=== PATIENT | male | born 1980 | race Caucasian/White ===

== ENCOUNTER 2021-04-30 09:51 | Inpatient (IN) | payer OTHER, SELFPAY ==
[2021-04-30] VITALS (8 sets, daily range): BP systolic 150–189; BP diastolic 70–110; PULSE 61–73; RESP 15–18; TEMP 36.6–37.3; O2SAT 95–98; BMI 33.6; BMI 34.9
--- NOTE | ~2021-04-30 | CT_ITS ---
EXAMINATION: CT ABDOMEN AND PELVIS WITH CONTRAST CLINICAL INFORMATION: Mid to left abdominal pain COMPARISON: None TECHNIQUE: Multidetector volumetric images were obtained from the superior aspect of the liver through the pubic symphysis following administration 85 mL of Omnipaque 350 intravenous contrast. Sagittal and coronal reformatted images were obtained on the technologist's workstation. Oral contrast: No This CT examination was performed using dose optimization techniques as appropriate, variously including the following: *Automated exposure control *Adjustment of mA and/or kV according to patient size (this includes techniques or standardized protocols for targeted exams where dose is matched to indication/reason for exam; i.e. extremities or head) *Use of iterative reconstruction technique DLP: 1050 mGy-cm FINDINGS: LUNG BASES: The visualized lung bases are unremarkable. No pleural or pericardial effusion. LIVER, GALLBLADDER, AND BILIARY TREE: The liver is normal in size, shape, and attenuation. No focal hepatic lesion or biliary ductal dilatation is present. There is a solitary calcified granuloma within the left lobe. The gallbladder is unremarkable with no evidence of radiopaque gallstones, gallbladder wall thickening, or obvious pericholecystic inflammatory changes. PANCREAS: There is some haziness seen within the peripancreatic fat about the head of the pancreas. No abnormal fluid collection is seen. No pancreatic duct dilatation is seen. No abnormal calcification about the distal common bile duct or pancreatic head identified. No abnormal fluid collection. SPLEEN: Unremarkable. ADRENAL GLANDS: Unremarkable. KIDNEYS AND URETERS: The kidneys are normal in size, shape, and attenuation. There is a 2 mm nonobstructing calculus seen within the upper pole of the left upper collecting system. No hydronephrosis or hydroureter. No perinephric stranding. There is a 7 mm low-density region seen within the cortex interpolar region of the left kidney likely representing a cyst. BLADDER: Unremarkable. GASTROINTESTINAL TRACT: No dilated loops of large or small bowel are seen. No free air or free fluid. No pericolonic inflammatory change. No evidence of acute appendicitis. ABDOMINAL WALL: No significant hernia is appreciated. LYMPH NODES: There are numerous nonenlarged mesenteric lymph nodes seen. VASCULAR: Unremarkable. PELVIC VISCERA: Prostate calcific dictation is present. OSSEOUS STRUCTURES: No suspicious destructive bony lesions identified. There is a sclerotic lesion seen within the right femoral neck consistent with bone island. There is degenerative disc disease seen at the L5-S1 level. CT/CT abdomen pelvis w con IMPRESSION: Mild hazy density within the peripancreatic fat around the head of the pancreas without abnormal fluid collection. This may represent early or mild acute pancreatitis
--- NOTE | 2021-04-30 10:03 | ED.ABDPAIN ---
HPI - Abdominal Pain General Chief Complaint: Abdominal Pain Stated Complaint: ABP PAIN Time Seen by Provider: 04/30/21 09:59 Source: patient Mode of arrival: ambulatory Limitations: no limitations Related Data Allergies Allergy/AdvReac Type Severity Reaction Status Date / Time No Known Allergies Allergy Unverified 05/14/20 17:02 [No Known Allergies*] Physical Exam Vital Signs: Vital Signs: Last Vital Signs Temp 97.9 F 04/30/21 09:55 Pulse 73 04/30/21 09:55 Resp 18 04/30/21 09:55 BP 189/110 H 04/30/21 09:55 Pulse Ox 97 04/30/21 09:55 Body Mass Index 33.6 [facility] Past Medical History Attestation statement: The following information was validated with the patient. Medical History Pancreatitis
--- NOTE | 2021-04-30 10:22 | ED_ITS ---
HPI - Abdominal Pain General Chief Complaint: Abdominal Pain Stated Complaint: ABP PAIN Time Seen by Provider: 04/30/21 09:59 Source: patient Mode of arrival: ambulatory History of Present Illness HPI narrative: 41-year-old male without significant past medical history other than 3 prior episodes of pancreatitis, that he states he has been told are secondary to his alcohol intake but patient states he ?does not drink that much?. Patient states he drinks intermittently but not daily. Otherwise, patient states that pain started yesterday with radiation into the back has been associated with some nausea but otherwise denies any fever, chills, vomiting, diarrhea, dysuria, and describes that he has had 1 episode of renal colic in the past but this does not feel the same. Related Data Home Medications Medication Instructions Recorded Confirmed fluticasone propionate 50 1 spray INTRANASAL BID 04/30/21 mcg/actuation nasal spray,suspension lisinopril 10 mg tablet 1 tab PO DAILY 04/30/21 Allergies Allergy/AdvReac Type Severity Reaction Status Date / Time No Known Allergies Allergy Unverified 05/14/20 17:02 [No Known Allergies*] Review of Systems Review of Systems Pertinent positives and negatives as stated in HPI 10 point review of systems is otherwise negative. Physical Exam Vital Signs: Vital Signs: Last Vital Signs Temp 97.9 F 04/30/21 09:55 Pulse 62 04/30/21 10:49 Resp 18 04/30/21 10:49 BP 174/103 H 04/30/21 10:49 Pulse Ox 98 04/30/21 10:49 Body Mass Index 33.6 VITAL SIGNS: Reviewed. GENERAL: Well developed, well nourished, in no acute distress. HEAD: Normocephalic/atraumatic, EYES: PERRLA, EOMI OROPHARYNX: no oral lesions noted, posterior pharynx clear LUNGS: Normal breath sounds. No adventitious sounds or accessory muscle use. SpO2<97> CARDIOVASCULAR: Regular rate and rhythm without noted murmurs ABDOMEN: Obese, body habitus limits exam, Soft, diffuse, pressure-like tenderness on palpation across upper abdomen without rebound, non-distended with bowel sounds. SKIN: Inspection of the skin reveals no rashes NEUROLOGIC: Alert and oriented x 4. Course Course Course Narrative: 41-year-old male with history and clinical presentation most suggestive of pancreatitis and less indicative of diverticulitis/renal colic. Review of all investigations consistent with acute pancreatitis, despite multiple doses of pain medication he continues to have pain and is unable to tolerate oral intake. Patient informed of all results and findings and will be admitted for pain control and inability to tolerate oral intake. I reviewed the case with the inpatient hospitalist who accepts admission. MDM - Abdominal Pain Lab Data Result diagrams: 04/30/21 10:38 04/30/21 10:38 Labs: Lab Results 04/30/21 04/30/21 04/30/21 Range/Units 10:37 10:38 10:38 WBC 11.9 H (4.8-10.8) X10*3/uL RBC 5.34 (4.60-5.80) X10*6/uL Hgb 15.5 (14.0-18.0) g/dl Hct 44.7 (42-52) % MCV 83.7 (80-98) fL MCH 29.0 (27.0-33.0) pg MCHC 34.7 (31.0-36.0) g/dl RDW 12.4 (11.0-16.0) % Plt Count 250 (160-400) X10*3/uL MPV 9.6 (9.4-12.4) fL Immature Gran % (Auto) 0.3 (0.0-0.4) % Neut % (Auto) 66.9 (45-73) % Lymph % (Auto) 22.5 (20-40) % [place] % (Auto) 8.3 (2-11) % Eos % (Auto) 1.5 (0-4) % Baso % (Auto) 0.5 (0-2) % Lymph # (Auto) 2.7 (1.2-4.9) X10*3/uL [place] # (Auto) 1.0 (0.1-1.2) X10*3/uL Eos # (Auto) 0.2 (0.0-0.4) X10*3/uL Baso # (Auto) 0.1 (0.0-0.2) X10*3/uL Abs Immat Gran (auto) 0.03 (0.00-0.03) X10*3/uL Absolute Neuts (auto) 7.9 (2.0-8.3) X10*3/uL Absolute Nucleated RBC 0.000 (0.0-0.012) X10*3/uL Nucleated RBC % (auto) 0.0 (0.0-0.2) /100WBC Sodium 137 (135-145) mmol/L Potassium 3.7 (3.3-5.1) mmol/L Chloride 104 (96-108) mmol/L Carbon Dioxide 25 (22-29) mmol/L Anion Gap 12 (12-20) BUN 11 (9-16) mg/dL Creatinine 0.73 (0.5-1.4) mg/dL Estim Creat Clear Calc 175.6 Estimated GFR > 60 Random Glucose 92 (60-115) mg/dL Calcium 9.0 (8.4-10.2) mg/dL Total Bilirubin 1.0 (0.0-1.0) mg/dL AST 23 (5-37) U/L ALT 45 H (0-40) U/L Alkaline Phosphatase 69 (39-117) U/L Total Protein 7.1 (6.5-8.0) g/dL Albumin 4.1 (3.5-5.0) g/dL Triglycerides 123 mg/dL Cholesterol 209 mg/dL LDL Cholesterol, Calc 140 mg/dl HDL Cholesterol 45 mg/dL Lipase 222 H (8-78) U/L Urine Color Urine Appearance Urine pH (5.0-8.0) Ur Specific [place] (1.005-1.025) Urine Protein (NEG-TRACE) MG/DL Urine Glucose (UA) (NEG) MG/DL Urine Ketones (NEG) MG/DL Urine Blood (NEG) Urine Nitrite (NEG) Ur Leukocyte Esterase (NEG) Urine RBC (0) /HPF Urine WBC (0-4) /HPF Ur Squamous Epith Cells /LPF Amorphous Sediment /LPF Urine Bacteria /LPF Urine Mucus /LPF 04/30/21 Range/Units 10:38 WBC (4.8-10.8) X10*3/uL RBC (4.60-5.80) X10*6/uL Hgb (14.0-18.0) g/dl Hct (42-52) % MCV (80-98) fL MCH (27.0-33.0) pg MCHC (31.0-36.0) g/dl RDW (11.0-16.0) % Plt Count (160-400) X10*3/uL MPV (9.4-12.4) fL Immature Gran % (Auto) (0.0-0.4) % Neut % (Auto) (45-73) % Lymph % (Auto) (20-40) % [place] % (Auto) (2-11) % Eos % (Auto) (0-4) % Baso % (Auto) (0-2) % Lymph # (Auto) (1.2-4.9) X10*3/uL [place] # (Auto) (0.1-1.2) X10*3/uL Eos # (Auto) (0.0-0.4) X10*3/uL Baso # (Auto) (0.0-0.2) X10*3/uL Abs Immat Gran (auto) (0.00-0.03) X10*3/uL Absolute Neuts (auto) (2.0-8.3) X10*3/uL Absolute Nucleated RBC (0.0-0.012) X10*3/uL Nucleated RBC % (auto) (0.0-0.2) /100WBC Sodium (135-145) mmol/L Potassium (3.3-5.1) mmol/L Chloride (96-108) mmol/L Carbon Dioxide (22-29) mmol/L Anion Gap (12-20) BUN (9-16) mg/dL Creatinine (0.5-1.4) mg/dL Estim Creat Clear Calc Estimated GFR Random Glucose (60-115) mg/dL Calcium (8.4-10.2) mg/dL Total Bilirubin (0.0-1.0) mg/dL AST (5-37) U/L ALT (0-40) U/L Alkaline Phosphatase (39-117) U/L Total Protein (6.5-8.0) g/dL Albumin (3.5-5.0) g/dL Triglycerides mg/dL Cholesterol mg/dL LDL Cholesterol, Calc mg/dl HDL Cholesterol mg/dL Lipase (8-78) U/L Urine Color YELLOW Urine Appearance CLOUDY Urine pH 7.0 (5.0-8.0) Ur Specific [place] 1.010 (1.005-1.025) Urine Protein 1+ H (NEG-TRACE) MG/DL Urine Glucose (UA) NEG (NEG) MG/DL Urine Ketones NEG (NEG) MG/DL Urine Blood NEG (NEG) Urine Nitrite NEG (NEG) Ur Leukocyte Esterase NEG (NEG) Urine RBC 0 (0) /HPF Urine WBC 0-2 (0-4) /HPF Ur Squamous Epith Cells NONE /LPF Amorphous Sediment 2+ /LPF Urine Bacteria TRACE /LPF Urine Mucus 1+ /LPF Discharge Plan Discharge Clinical Impression: Acute pancreatitis Patient Disposition: Admitted As Inpatient [facility] Past Medical History Source: nursing notes reviewed Medical History Pancreatitis Social History Social History Alcohol intake: current Alcohol intake frequency: a few times a week Patient Tobacco Use Status: Current everyday Tobacco user Use of substances other than those prescribed or required for medical reasons: Yes Substance Use Type: Marijuana Advance Directives: No Advance Directives Information Provided: No
[2021-04-30] MEDS: 0.9 % Sodium Chloride 1,000 ML 999 ML IV ×2 (10:40→11:45)
[2021-04-30 10:45] LABS: MANUAL DIFF FLAG NO
[2021-04-30 10:48] LABS: Basophils Absolute Auto 0.1 X10*3/uL (0.0-0.2); Basophils Percent Auto 0.5 % (0-2); Eosinophils Absolute Auto 0.2 X10*3/uL (0.0-0.4); Eosinophils Percent Auto 1.5 % (0-4); Glucose Urine UA NEG (NEG); Hematocrit 44.7 % (42-52); Hemoglobin 15.5 g/dl (14.0-18.0); Imm Gran Abs Auto 0.03 X10*3/uL (0.00-0.03); Imm Gran Pct Auto 0.3 % (0.0-0.4); Leukocyte Esterase Urine NEG (NEG); Lymphocytes Absolute Auto 2.7 X10*3/uL (1.2-4.9); Lymphocytes Percent Auto 22.5 % (20-40); Mean Corpuscular HGB Conc 34.7 g/dl (31.0-36.0); Mean Corpuscular Volume 83.7 fL (80-98); Mean Platelet Volume 9.6 fL (9.4-12.4); Monocytes Percent Auto 8.3 % (2-11); Neutrophils Absolute Auto 7.9 X10*3/uL (2.0-8.3); Neutrophils Percent Auto 66.9 % (45-73); Nitrite Urine NEG (NEG); Platelet Count 250 X10*3/uL (160-400); Red Blood Count 5.34 X10*6/uL (4.60-5.80); Red Cell Distribution Width 12.4 % (11.0-16.0); UACC Culture Trigger NO; Urine Blood NEG (NEG); Urine Ketones NEG (NEG); Urine Protein 1+ MG/DL (NEG-TRACE); White Blood Count 11.9 X10*3/uL (4.8-10.8)
[2021-04-30 10:49] LABS: Appearance Urine CLOUDY; Color Urine YELLOW
[2021-04-30 10:56] LABS: Bacteria Urine TRACE /LPF; Mucus Urine 1+ /LPF; RBC Urine 0 /HPF (0); WBC Urine 0-2 /HPF (0-4)
[2021-04-30 10:57] LABS: Amorphous Sediment Urine 2+ /LPF
[2021-04-30] MEDS: hydroCHLOROthiazide 12.5 MG TABLET PO (11:01)
[2021-04-30] MEDS: Ketorolac Tromethamine 15 MG/ML VIAL IVPUSH (11:01)
[2021-04-30 11:02] LABS: Cholesterol 209 mg/dL; HDL Cholesterol 45 mg/dL; LDL Cholesterol Calculated 140 mg/dl; Triglycerides 123 mg/dL
[2021-04-30 11:21] LABS: Alanine Aminotransferase 45 U/L (0-40); Albumin Level 4.1 g/dL (3.5-5.0); Alkaline Phosphatase 69 U/L (39-117); Anion Gap 12 (12-20); Aspartate Amino Transferase 23 U/L (5-37); Blood Urea Nitrogen 11 mg/dL (9-16); Carbon Dioxide 25 mmol/L (22-29); Chloride 104 mmol/L (96-108); Creatinine Clr Calc Pharmacy 175.6; Estimated Glomerular Filt Rate > 60; Glucose Random 92 mg/dL (60-115); Lipase 222 U/L (8-78); Potassium 3.7 mmol/L (3.3-5.1); Sodium 137 mmol/L (135-145); Total Protein 7.1 g/dL (6.5-8.0)
[2021-04-30] MEDS: fentaNYL citrate/PF 100 MCG/2 ML VIAL 25 MCG IVPUSH (11:46)
[2021-04-30] MEDS: ondansetron HCL 4 MG/2 ML VIAL IVPUSH (11:46)
[2021-04-30] MEDS: HYDROmorphone HCl 0.5 MG/0.5 ML SYRINGE 0.25 MG IVPUSH (12:20)
[2021-04-30] MEDS: iohexoL 350 MG/ML 100 ML INFUS..BTL IV (12:22)
--- NOTE | 2021-04-30 13:32 | PM.IMHP ---
History of Present Illness Date of Service: 04/30/21 Chief Complaint: Epigastric pain 41-year-old male presented with epigastric pain. Patient has several episodes of pancreatitis in the past, mostly recently about 1 year prior to presentation. Patient states that 1 day prior to presentation he started to have epigastric sharp pain radiating to back that was worse with eating to point where he was unable to eat at all. Similar to previous episodes. Denies any fevers, chills, chest pain, shortness of breath. Patient's last drink of alcohol was 2 days before symptoms when he had 2 glasses of beer. Patient drinks several times a week, several beers, does not feel that this is the etiology. Of note he did recently started a keto powder drink, and has been on lisinopril. Triglycerides were normal, CT abdomen did not show any gallstones. Previous episodes were deemed to be secondary to alcohol although this diagnosis was never made with confidence. Review of Systems Review of Systems: Constitutional: Denies fever, denies Chills Eyes: denies blurry vision ENT: denies sore throat CVS: denies chest pain Respiratory: Denies dyspnea GI: abdominal pain : denies dysuria MSK: denies neck pain Skin: denies rash Neuro: denies specific motor weakness Psych: denies suicidal ideation Endocrine: denies heat/cold intolerance Hematologic: denies easy bleeding Allergy: denies hives [facility] Medical History Pancreatitis Social History Alcohol intake: current Alcohol intake frequency: a few times a week Patient Tobacco Use Status: Current everyday Tobacco user Use of substances other than those prescribed or required for medical reasons: Yes Substance Use Type: Marijuana Advance Directives: No Advance Directives Information Provided: No Meds Allergies Allergy/AdvReac Type Severity Reaction Status Date / Time No Known Allergies Allergy Unverified 05/14/20 17:02 [No Known Allergies*] Active Medications: Current Medications Generic Name Dose Route Start Last Admin Trade Name Freq PRN Reason Stop Dose Admin Pharmacy Consult 1 each 04/30/21 13:09 Consult Rx Perform Med Rec MISCELLANE ONCE PRN Consult order Home Medications Medication Instructions Recorded Confirmed Last Taken Type fluticasone propionate 50 1 spray INTRANASAL BID 04/30/21 Unknown History mcg/actuation nasal spray,suspension lisinopril 10 mg tablet 1 tab PO DAILY 04/30/21 Unknown History Physical Exam Vital Signs and Narrative: Vital Signs: Last Vital Signs Temp 97.9 F 04/30/21 09:55 Pulse 62 04/30/21 10:49 Resp 18 04/30/21 10:49 BP 174/103 H 04/30/21 10:49 Pulse Ox 98 04/30/21 10:49 Body Mass Index 33.6 General: in pain HEENT: atraumatic Neck: normal to visual inspection CVS: S1, S2, RRR Resp: CTA bilateral Chest: non tender GI: soft, epigastrum tender, non distended : no CVA tenderness Skin: no rashes Extremities: no edema Neuro: Oriented X3, grossly intact Psych: cooperative Results Labs CBC and Chem 7: 04/30/21 10:38 04/30/21 10:38 Labs: Laboratory Results - last 24 hr 04/30/21 04/30/21 04/30/21 10:37 10:38 10:38 MCV 83.7 MCH 29.0 MCHC 34.7 RDW 12.4 Plt Count 250 MPV 9.6 Immature Gran % (Auto) 0.3 Neut % (Auto) 66.9 Lymph % (Auto) 22.5 [place] % (Auto) 8.3 Eos % (Auto) 1.5 Baso % (Auto) 0.5 Lymph # (Auto) 2.7 [place] # (Auto) 1.0 Eos # (Auto) 0.2 Baso # (Auto) 0.1 Abs Immat Gran (auto) 0.03 Absolute Neuts (auto) 7.9 Absolute Nucleated RBC 0.000 Nucleated RBC % (auto) 0.0 Anion Gap 12 Estim Creat Clear Calc 175.6 Estimated GFR > 60 Random Glucose 92 Calcium 9.0 Total Bilirubin 1.0 AST 23 ALT 45 H Alkaline Phosphatase 69 Total Protein 7.1 Albumin 4.1 Triglycerides 123 Cholesterol 209 LDL Cholesterol, Calc 140 HDL Cholesterol 45 Lipase 222 H Urine Color Urine Appearance Urine pH Ur Specific [place] Urine Protein Urine Glucose (UA) Urine Ketones Urine Blood Urine Nitrite Ur Leukocyte Esterase Urine RBC Urine WBC Ur Squamous Epith Cells Amorphous Sediment Urine Bacteria Urine Mucus 04/30/21 10:38 MCV MCH MCHC RDW Plt Count MPV Immature Gran % (Auto) Neut % (Auto) Lymph % (Auto) [place] % (Auto) Eos % (Auto) Baso % (Auto) Lymph # (Auto) [place] # (Auto) Eos # (Auto) Baso # (Auto) Abs Immat Gran (auto) Absolute Neuts (auto) Absolute Nucleated RBC Nucleated RBC % (auto) Anion Gap Estim Creat Clear Calc Estimated GFR Random Glucose Calcium Total Bilirubin AST ALT Alkaline Phosphatase Total Protein Albumin Triglycerides Cholesterol LDL Cholesterol, Calc HDL Cholesterol Lipase Urine Color YELLOW Urine Appearance CLOUDY Urine pH 7.0 Ur Specific [place] 1.010 Urine Protein 1+ H Urine Glucose (UA) NEG Urine Ketones NEG Urine Blood NEG Urine Nitrite NEG Ur Leukocyte Esterase NEG Urine RBC 0 Urine WBC 0-2 Ur Squamous Epith Cells NONE Amorphous Sediment 2+ Urine Bacteria TRACE Urine Mucus 1+ Imaging Radiologist's Impressions: Impressions Abdomen/Pelvis CT 04/30/21 10:21 IMPRESSION: Mild hazy density within the peripancreatic fat around the head of the pancreas without abnormal fluid collection. This may represent early or mild acute pancreatitis Assessment and Plan (1) Acute pancreatitis: Status: Acute 41M presented with severe epigastic abdominal pain and inability to tolerate po. acute pancreatitis NPO IVF IV dilaudid etiology differential: alcohol most likely, though patient reports only moderate alcohol and ALT>AST will check IgG4 would stop keto powder and lisinopril for now Quality Stroke Does the patient have a stroke diagnosis?: No VTE Prior VTE?: No VTE Risk Level:: Medical - moderate - high VTE Device Contraindication: Treatment Not Indicated VTE Drug Contraindication: N/A - Med Ordered
[2021-04-30] MEDS: HYDROmorphone HCl 0.5 MG/0.5 ML SYRINGE IVPUSH ×2 (13:54→15:28)
[2021-04-30] MEDS: Lactated Ringers 1,000 ML 200 ML IVCONT ×2 (13:54→19:22)
--- NOTE | 2021-04-30 14:10 | PHA.MEDREC ---
Pharmacy Consult ? Medication Reconciliation Pharmacy has completed the medication reconciliation. Per patient, prescribed lisinopril last week (04/22) and patient will start once they return from vacation next week.
[2021-04-30 14:12] LABS: COVID-19 Test Negative (Negative); IDNOW Serial# 9DD0AD1C
[2021-04-30] MEDS: HYDROmorphone HCl 0.5 MG/0.5 ML SYRINGE 1.5 MG IVPUSH ×2 (19:28→22:18)
[2021-04-30] MEDS: Metoclopramide HCl 10 MG/2 ML VIAL 5 MG IVPUSH (23:30)
[2021-05-01] VITALS (8 sets, daily range): BP systolic 148–173; BP diastolic 68–86; PULSE 59–70; RESP 15–18; TEMP 36.9–37.1; O2SAT 95–96
[2021-05-01] MEDS: Lactated Ringers 1,000 ML 200 ML IVCONT ×5 (00:26→20:55)
[2021-05-01] MEDS: HYDROmorphone HCl 0.5 MG/0.5 ML SYRINGE 1.5 MG IVPUSH ×8 (01:10→23:07)
[2021-05-01 06:57] LABS: Hemoglobin 13.9 g/dl (14.0-18.0); Mean Corpuscular HGB Conc 33.9 g/dl (31.0-36.0); Mean Corpuscular Hemoglobin 28.9 pg (27.0-33.0); Mean Corpuscular Volume 85.2 fL (80-98); Mean Platelet Volume 10.4 fL (9.4-12.4); Platelet Count 229 X10*3/uL (160-400); Red Blood Count 4.81 X10*6/uL (4.60-5.80); Red Cell Distribution Width 12.4 % (11.0-16.0); White Blood Count 13.9 X10*3/uL (4.8-10.8)
[2021-05-01 07:15] LABS: Anion Gap 12 (12-20); Blood Urea Nitrogen 9 mg/dL (9-16); Calcium 8.5 mg/dL (8.4-10.2); Carbon Dioxide 26 mmol/L (22-29); Chloride 100 mmol/L (96-108); Creatinine Clr Calc Pharmacy 165.3; Estimated Glomerular Filt Rate > 60; Glucose Fasting 84 mg/dL (60-99); Magnesium 1.9 mg/dL (1.6-2.6); Potassium 3.2 mmol/L (3.3-5.1); Sodium 135 mmol/L (135-145)
[2021-05-01] MEDS: Rivaroxaban 10 MG TABLET PO (07:41)
--- NOTE | 2021-05-01 09:02 | MHC.CM.PN ---
CM met with Patient at bedside. Patient lives in a house with his Girlfriend and his goal is to return home/no services. CM has initiated and will follow for dc planning. Patient's Mother is his HCP and PCP is Dr. Manpreet Elias.
--- NOTE | 2021-05-01 11:28 | HO.PM.IMPN ---
Subjective Subjective Date of Service: 05/01/21 Interval History: a little better, still no appetite Cardiovascular Cardiovascular: Reports no additional cardiovascular complaints Respiratory Respiratory: Reports no additional respiratory complaints Physical Exam Vital Signs: Vital Signs: Last Vital Signs Temp 98.6 F 05/01/21 07:34 Pulse 67 05/01/21 07:34 Resp 18 05/01/21 07:34 BP 173/78 H 05/01/21 07:34 Pulse Ox 96 05/01/21 07:34 Body Mass Index 34.9 General: AO X 3, still in pain, though less than yesterday Resp: CTA bilateral CVS: S1,S2,RRR GI: soft, epigastic tenderness, non distended Neuro: motor grossly intact Psych: appropriate affect Objective Data Active Medications Hydromorphone HCl (Hydromorphone Hcl 0.5 Mg/0.5 Ml Syringe) 1.5 mg IVPUSH Q3H PRN; Protocol PRN Reason: pain Last Admin: 05/01/21 11:00 Dose: 1.5 mg Documented by: NATALYA Lactated Ringer's (Lr) 1,000 mls @ 200 mls/hr IVCONT .Q5H [facility] Last Admin: 05/01/21 10:59 Dose: 200 mls/hr Documented by: NATALYA Pharmacy Consult (Consult Rx Perform Med Rec) 1 each MISCELLANE ONCE PRN PRN Reason: Consult order Rivaroxaban (Rivaroxaban 10 Mg Tablet) 10 mg PO DAILY [facility] Last Admin: 05/01/21 07:41 Dose: 10 mg Documented by: JOSIAS Labs CBC & Chem 7: 05/01/21 05:21 05/01/21 05:21 Labs: Laboratory Results - last 24 hr 04/30/21 05/01/21 05/01/21 13:24 05:21 05:21 MCV 85.2 MCH 28.9 MCHC 33.9 RDW 12.4 Plt Count 229 MPV 10.4 Absolute Nucleated RBC 0.000 Nucleated RBC % (auto) 0.0 Anion Gap 12 Estim Creat Clear Calc 165.3 Estimated GFR > 60 Fasting Glucose 84 Calcium 8.5 Magnesium 1.9 COVID-19 (DEENA) Negative COVID-19 Clin Com See Note Assessment and Plan (1) Acute pancreatitis: Status: Acute Assessment and Plan: 41M presented with severe epigastic abdominal pain and inability to tolerate po. acute pancreatitis still not ready to eat, keep NPO, advance to clears when patient is ready IVF IV Dilaudid etiology differential: alcohol most likely, though patient reports only moderate alcohol and ALT>AST follow up IgG4 apparently patient had not started lisinopril yet, so not the cause. htn will start lisinopril Quality Stroke Does the patient have a stroke diagnosis?: No VTE Prior VTE?: No VTE Risk Level:: Medical - moderate - high VTE Device Contraindication: Treatment Not Indicated VTE Drug Contraindication: N/A - Med Ordered
[2021-05-01] MEDS: Potassium Chloride ER 20 MEQ TAB.ER.PRT 40 MEQ PO (13:20)
--- NOTE | 2021-05-01 23:55 | PM.EVENT ---
Event Note Date of Service: 05/01/21 Event Note: Discharge Against medical advise note: Patient mentioned that he had a flight to catch; he try to postpone it but he could not; explained to the patient about the risks involved which can even lead to worsening current condition and major complications patient verbalized that he understood the risks and still wants to leave AMA.
--- NOTE | 2021-05-02 00:01 | PC.NURSE ---
At 1145 pt stated I have a flight and [place] at the airport at 0300, I have to leave the hospital. Pt alert and oriented. Nursing sample supervisor aware, Dr Matthew spoke to pt via telephone. Pt left AMA, form signed by pt and witnessed by this RN and nursing sample supervisor. IV removed.
--- NOTE | 2021-05-02 06:50 | PM.DS ---
DS: Providers Provider Date of Service: 05/01/21 Date of admission: 04/30/21 13:31 Primary care physician: Manpreet Elias MD DS: Diagnosis Discharge Diagnosis (1) Acute pancreatitis: Status: Acute DS: Summary Hospital Course Hospital Course: Patient was admitted for acute pancreatitis. Most likely etiology is alcoholic pancreatitis although diagnosis is not certain. IgG4 still pending. Patient was treated with IV pain medications and IV hydration. Patient was still in significant pain and only tolerating clears. However, he decided to leave against medical advice. Patient demonstrated understanding of his medical condition and risks of leaving against medical advice including possible Time Spent with Patient Time attestation: Total time spent providing and/or coordinating discharge services: Discharge coordination time: Greater than 30 minutes Quality: Stroke Does the patient have a stroke diagnosis?: No Physical Exam Vital Signs: Vital Signs: Last Vital Signs Temp 98.4 F 05/01/21 23:41 Pulse 70 05/01/21 23:41 Resp 18 05/01/21 23:41 BP 171/68 H 05/01/21 23:41 Pulse Ox 95 05/01/21 23:41 Body Mass Index 34.9 General: AO X 3, still in pain, though less than yesterday Resp:? CTA bilateral CVS: S1,S2,RRR GI: soft, epigastic tenderness, non distended Neuro:? motor grossly intact Psych: appropriate affect DS: Data Data Completed and Pending Labs on day of discharge: Laboratory Results - last 24 hr 05/01/21 05/01/21 05:21 05:21 WBC 13.9 H RBC 4.81 Hgb 13.9 L Hct 41.0 L MCV 85.2 MCH 28.9 MCHC 33.9 RDW 12.4 Plt Count 229 MPV 10.4 Absolute Nucleated RBC 0.000 Nucleated RBC % (auto) 0.0 Sodium 135 Potassium 3.2 L Chloride 100 Carbon Dioxide 26 Anion Gap 12 BUN 9 Creatinine 0.79 Estim Creat Clear Calc 165.3 Estimated GFR > 60 Fasting Glucose 84 Calcium 8.5 Magnesium 1.9 Discharge Plan Discharge Patient Disposition: Left Against Medical Advice Discharge Diagnosis: acute pancreatitis Referrals: Manpreet Elias MD [Primary Care Provider] - 1 Week Discharge Medications: No Action lisinopril 10 mg tablet 1 tab PO DAILY RF: 0 Discharge Orders: Discharge Order (Routine); Ordered 05/02/21 Ordered By: Mason Mcclain Care Plan Goals: recovery Health Concerns: pacnreatitis Plan of Treatment: advance diet as tolerated, no alcohol, follow up pending labs Assessment: see above Discharge Date/Time: 05/02/21 00:00
--- NOTE | 2021-05-02 08:29 | MHC.CM.PN ---
PT LEFT AGAINST MEDICAL ADVICE
[2021-05-04 20:51] LABS: Immunoglobulin G Subclass 1 630 mg/dL (382-929); Immunoglobulin G Subclass 2 152 mg/dL (241-700); Immunoglobulin G Subclass 3 43 mg/dL (22-178); Immunoglobulin G Total 983 mg/dL (600-1640)
== END 2021-05-02 | disposition left against medical advice (07) | DRG 282 ==
LOC: HO.ED 13:06 → HO.EDOVER 13:49 → HO.IMC 17:32
PROVIDERS: Admitting Provider Internal Medicine; Emergency Provider Student in an Organized Health Care Education/Training Program; PCP Pediatrics; Visit Provider Internal Medicine
DX: K85.20 Alcohol induced acute pancreatitis without necrosis or infection (principal); F17.210 Nicotine dependence, cigarettes, uncomplicated; Z20.822 Contact with and (suspected) exposure to COVID-19; Z71.6 Tobacco abuse counseling; Z79.899 Other long term (current) drug therapy
CPT/HCPCS: 36415; 74177; 80048; 80053; 80061; 81001; 82784; 83690; 83735; 85025; 85027; 87635; 96361; 96374; 96375; 99285; J1170; J1885; J2405; J2765; J3010; Q9967

== ENCOUNTER 2024-01-12 19:10 | Emergency (ER) | payer OTHER, SELFPAY ==
[2024-01-12] VITALS (9 sets, daily range): BP systolic 147–182; BP diastolic 89–116; PULSE 56–71; RESP 14–18; TEMP 36.7; O2SAT 96–99; BMI 36.8
--- NOTE | ~2024-01-12 | CT_ITS ---
EXAMINATION: CT OF THE HEAD WITHOUT CONTRAST CLINICAL INFORMATION: Accelerated hypertension with headache.. COMPARISON: None. TECHNIQUE: Contiguous axial imaging was performed from the skullbase to vertex without intravenous administration of contrast. This CT examination was performed using dose optimization techniques as appropriate, variously including the following: *Automated exposure control *Adjustment of mA and/or kV according to patient size (this includes techniques or standardized protocols for targeted exams where dose is matched to indication/reason for exam; i.e. extremities or head) *Use of iterative reconstruction technique DLP: 680 mGy-cm. FINDINGS: There is no evidence of acute intracranial hemorrhage or territorial infarction. No abnormal mass-effect or midline shift is seen. [place] to white matter differentiation is well preserved. No extra-axial fluid collections are identified. The ventricles are normal in size. There is no abnormal attenuation within the brain parenchyma. The osseous structures and soft tissues are normal. The mastoid air cells and visualized portions of the paranasal sinuses are well-aerated. CT/CT head/brain wo IV con IMPRESSION: No acute intracranial pathology.
--- NOTE | 2024-01-12 19:12 | ECG_ITS ---
Test Reason : htn Blood Pressure : / mmHG Vent. Rate : 064 BPM Atrial Rate : 064 BPM P-R Int : 170 ms QRS Dur : 096 ms QT Int : 388 ms P-R-T Axes : 042 -37 014 degrees QTc Int : 400 ms Normal sinus rhythm Left axis deviation Abnormal ECG When compared with ECG of 10-DEC-2019 22:01, No significant change was found Referred By: Vonnie Ramsey Electronically Signed By:TAO PEREZ MD
--- NOTE | 2024-01-12 19:19 | ED_ITS ---
HPI - General Adult General Chief complaint: General Medical Stated complaint: HTN Time Seen by Provider: 01/12/24 19:16 Source: patient Mode of arrival: ambulatory Limitations: no limitations History of Present Illness HPI narrative: Patient's history of hypertension for last 4 years on lisinopril supposed to be on 40 mg daily taking only 20 mg now around 18:00 patient noticed sudden onset of dizziness feeling flushed with funny feeling in the head no nausea no vomiting no chest pain or palpitation Related Data Home Medications ?Medication ?Instructions ?Recorded ?Confirmed lisinopril 10 mg tablet 1 tab PO DAILY 04/30/21 04/30/21 Previous Rx's ?Medication ?Instructions ?Recorded amlodipine 5 mg tablet 5 mg PO DAILY #90 tabs 01/12/24 lorazepam 1 mg tablet (Ativan) 1 mg PO BEDTIME PRN anxiety/sleep 01/12/24 #14 tabs Allergies Allergy/AdvReac Type Severity Reaction Status Date / Time No Known Allergies Allergy Unverified 01/12/24 19:32 [No Known Allergies*] Review of Systems 2 Review of Systems: Yes all other systems are reviewed and are negative PMFSH Past Medical History Medical History Pancreatitis Social History Social History Household Members: Significant Other Housing: House Do you presently have visiting nurse or other home services: No Alcohol intake: current Alcohol intake frequency: other Alcohol type: beer Patient Tobacco Use Status: Current everyday Tobacco user Tobacco use type: Cigarette Cigarette Packs Per Day: 0.5 Cigarettes Per Day: 10.0 Smoked in Last 30 Days: Yes Use of substances other than those prescribed or required for medical reasons: No Substance Use Type: Marijuana Advance Directives: No Advance Directives Information Provided: No service: No Current occupational status: employed Physical Exam ED Vital Signs: Vital Signs - 24 hr 01/12/24 19:30 01/12/24 19:45 01/12/24 19:49 Temperature 98.0 F Pulse Rate 67 69 Respiratory Rate 14 18 Blood Pressure 182/116 H 174/115 H 175/107 H Pulse Oximetry 96 Oxygen Delivery Method Room Air 01/12/24 20:23 01/12/24 20:57 01/12/24 21:39 Temperature Pulse Rate 64 63 Respiratory Rate 16 18 Blood Pressure 149/89 H 163/102 H 147/93 H Pulse Oximetry 96 96 Oxygen Delivery Method Room Air Room Air 01/12/24 23:01 01/12/24 23:24 Temperature 98.0 F 98.0 F Pulse Rate 56 56 Respiratory Rate 18 18 Blood Pressure 156/99 H 156/99 H Pulse Oximetry 99 99 Oxygen Delivery Method Room Air Room Air BMI result Body Mass Index 36.8 Appearance: Alert. Oriented X3. No acute distress. Eyes: PERRLA, No Nystagmus ENT: Pharynx normal. Oral Mucosa moist Neck: Normal inspection. Neck supple. CVS: Normal heart rate and rhythm. Pulses normal. Respiratory: No respiratory distress. Equal air entry bilateral, no wheezing/rales/rhonchi Abdomen: Soft and nontender. Bowel sounds are present, no mass palpable, no CVA tenderness Skin: Skin warm and dry. Normal skin color. Normal skin turgor. Extremities: No lower extremity edema. No calf tenderness Neuro: Oriented X 3. No motor deficit. No sensory deficit.No cerebellar signs , cranial nerves II-XII intact Medications Administered Discontinued Medications Generic Name Dose Route Start Last Admin Trade Name Freq PRN Reason Stop Dose Admin Amlodipine Besylate 5 mg 01/12/24 21:09 01/12/24 21:39 Amlodipine Besylate 5 Mg Tablet PO 01/12/24 21:10 5 mg ONCE ONE Administration Protocol Hydralazine HCl 10 mg 01/12/24 19:36 01/12/24 19:45 Hydralazine Hcl 20 Mg/Ml Vial IVPUSH 01/12/24 19:37 10 mg ONCE ONE Administration Protocol Lorazepam 1 mg 01/12/24 19:54 01/12/24 20:00 Lorazepam 2 Mg/Ml Vial IVPUSH 01/12/24 19:55 1 mg ONCE ONE Administration Medical Decision Making Medical Decision Making [facility] Narrative: Patient with accelerated hypertension with history of chronic hypertension noncompliant with medication CT scan of the head is negative for acute bleed , blood pressure improved after Ativan and amlodipine and IV hydralazine no discharge patient home advised to continue his lisinopril 40 mg and start on amlodipine 5 mg and medication for anxiety Differential Diagnosis Differential Diagnoses: The differential diagnosis associated with the presentation includes Admission/Observation Consideration of admission/observation: Escalation of care including admission/observation considered Lab Data MDM Lab Attestation statement: I reviewed the patient's lab results. 01/12/24 19:44 01/12/24 19:44 Labs: Lab Results 01/12/24 Range/Units 19:44 WBC 10.4 (4.8-10.8) X10*3/uL RBC 5.18 (4.60-5.80) X10*6/uL Hgb 15.5 (14.0-18.0) g/dl Hct 44.0 (42.0-52.0) % MCV 84.9 (80.0-98.0) fL MCH 29.9 (27.0-33.0) pg MCHC 35.2 (31.0-36.0) g/dl RDW 12.4 (11.0-16.0) % Plt Count 265 (160-400) X10*3/uL MPV 9.5 (9.4-12.4) fL Immature Gran % (Auto) 0.3 (0.0-0.4) % Neut % (Auto) 60.4 (45-73) % Lymph % (Auto) 30.6 (20-40) % [place] % (Auto) 7.5 (2-11) % Eos % (Auto) 0.6 (0-4) % Baso % (Auto) 0.6 (0-2) % Lymph # (Auto) 3.2 (1.2-4.9) X10*3/uL [place] # (Auto) 0.8 (0.1-1.2) X10*3/uL Eos # (Auto) 0.1 (0.0-0.4) X10*3/uL Baso # (Auto) 0.1 (0.0-0.2) X10*3/uL Abs Immat Gran (auto) 0.03 (0.00-0.03) X10*3/uL Absolute Neuts (auto) 6.3 (2.0-8.3) x10*3/uL Absolute Nucleated RBC 0.000 (0.0-0.012) X10*3/uL Nucleated RBC % (auto) 0.0 (0.0-0.2) /100WBC Sodium 137 (135-145) mmol/L Potassium 3.8 (3.3-5.1) mmol/L Chloride 106 (96-108) mmol/L Carbon Dioxide 21 L (22-29) mmol/L Anion Gap 14 (12-20) BUN 15 (9-16) mg/dL Creatinine 0.73 (0.5-1.4) mg/dL Estim Creat Clear Calc 174.9 Estimated GFR > 60 Random Glucose 86 (60-115) mg/dL Calcium 9.4 D (8.4-10.2) mg/dL Total Bilirubin 0.4 (0.0-1.0) mg/dL AST 20 (5-37) U/L ALT 32 (0-40) U/L Alkaline Phosphatase 46 (39-117) U/L Troponin I High Sens < 2.7 (<3.5-35.0) ng/L Total Protein 7.2 (6.5-8.0) g/dL Albumin 4.0 (3.5-5.0) g/dL Critical Care Time Critical Care Time Critical Care Time: Yes Total Critical Care Time: 55 Attestation: The patient was critically ill with a high probability of imminent or life threatening deterioration. I spent greater than 60???minutes of discontinuous time evaluating the patient,delivering critical care at the bedside, discussing and evaluating pertinent data with consultants. Critical care time does not include time spent performing separately billable procedures or teaching. Total time spent performing critical care was 55???minutes. Discharge Plan Discharge Clinical Impression: Hypertension Patient Disposition: Home, Self-Care Instructions: Chronic Hypertension (ED) Additional Instructions: Decrease salt intake Continue to take lisinopril 40 mg daily Also start taking amlodipine 5 mg daily Check blood pressure twice a day should be less than 135/85 Follow-up with your PCP ativan for anxiety and sleep as needed Prescriptions: New amlodipine 5 mg tablet 5 mg PO DAILY Qty: 90 0RF lorazepam [Ativan] 1 mg tablet 1 mg PO BEDTIME PRN (Reason: anxiety/sleep) Qty: 14 0RF No Action lisinopril 10 mg tablet 1 tab PO DAILY Rx Instructions: Per patient, prescribed last week (04/22) and patient will start once they return from vacation next week. Interventions: ED Discharge Assessment Last Done: 01/12/24 23:24 Discharge Date/Time: 01/12/24 23:25 Print Language: Singaporean
[2024-01-12] MEDS: hydrALAZINE HCl 20 MG/ML VIAL 10 MG IVPUSH (19:45)
[2024-01-12 19:48] LABS: MANUAL DIFF FLAG NO
[2024-01-12 19:49] LABS: Basophils Absolute Auto 0.1 X10*3/uL (0.0-0.2); Basophils Percent Auto 0.6 % (0-2); Eosinophils Absolute Auto 0.1 X10*3/uL (0.0-0.4); Eosinophils Percent Auto 0.6 % (0-4); Hemoglobin 15.5 g/dl (14.0-18.0); Imm Gran Abs Auto 0.03 X10*3/uL (0.00-0.03); Imm Gran Pct Auto 0.3 % (0.0-0.4); Lymphocytes Absolute Auto 3.2 X10*3/uL (1.2-4.9); Lymphocytes Percent Auto 30.6 % (20-40); Mean Corpuscular HGB Conc 35.2 g/dl (31.0-36.0); Mean Corpuscular Hemoglobin 29.9 pg (27.0-33.0); Mean Corpuscular Volume 84.9 fL (80.0-98.0); Mean Platelet Volume 9.5 fL (9.4-12.4); Monocytes Absolute Auto 0.8 X10*3/uL (0.1-1.2); Monocytes Percent Auto 7.5 % (2-11); Neutrophils Absolute Auto 6.3 x10*3/uL (2.0-8.3); Neutrophils Percent Auto 60.4 % (45-73); Platelet Count 265 X10*3/uL (160-400); Red Blood Count 5.18 X10*6/uL (4.60-5.80); Red Cell Distribution Width 12.4 % (11.0-16.0); White Blood Count 10.4 X10*3/uL (4.8-10.8)
[2024-01-12] MEDS: LORazepam 2 MG/ML VIAL 1 MG IVPUSH (20:00)
[2024-01-12 20:08] LABS: Alanine Aminotransferase 32 U/L (0-40); Alkaline Phosphatase 46 U/L (39-117); Anion Gap 14 (12-20); Aspartate Amino Transferase 20 U/L (5-37); Bilirubin Total 0.4 mg/dL (0.0-1.0); Blood Urea Nitrogen 15 mg/dL (9-16); Calcium 9.4 mg/dL (8.4-10.2); Carbon Dioxide 21 mmol/L (22-29); Chloride 106 mmol/L (96-108); Creatinine Clr Calc Pharmacy 174.9; Estimated Glomerular Filt Rate > 60; Glucose Random 86 mg/dL (60-115); Potassium 3.8 mmol/L (3.3-5.1); Sodium 137 mmol/L (135-145); Total Protein 7.2 g/dL (6.5-8.0)
[2024-01-12 20:17] LABS: Troponin-I High Sensitivity < 2.7 ng/L (<3.5-35.0)
[2024-01-12] MEDS: amLODIPine Besylate 5 MG TABLET PO (21:39)
== END 2024-01-12 23:25 | disposition home or self-care (01) ==
PROVIDERS: Physician Assistant; Emergency Provider Internal Medicine
DX: I10 Essential (primary) hypertension (principal); R42 Dizziness and giddiness; Z79.899 Other long term (current) drug therapy
CPT/HCPCS: 36415; 70450; 80053; 84484; 85025; 93005; 96374; 96375; 99284; 99285; J0360; J2060

== ENCOUNTER → 2024-01-12 19:12 | Outpatient (BNV) | payer OTHER, SELFPAY | PROVIDERS: Emergency Provider Internal Medicine; Visit Provider Internal Medicine Cardiovascular Disease | DX: I10 Essential (primary) hypertension (principal) | CPT/HCPCS: 93010 ==

== ENCOUNTER 2025-03-10 12:07 | Outpatient (REF) | payer OTHER, SELFPAY ==
[2025-03-10 18:15] LABS: Resp Syncy Virus RNA Qual PCR NEGATIVE (Negative); SARS COV2 PCR INHOUSE NEGATIVE (Negative)
== END 2025-03-10 12:08 | disposition home or self-care (01) ==
LOC: HO.LNP 12:07
PROVIDERS: PCP Family Medicine; Visit Provider Nurse Practitioner Family
DX: R68.83 Chills (without fever) (principal); J06.9 Acute upper respiratory infection, unspecified; R05.9 Cough, unspecified; R07.89 Other chest pain; R09.89 Other specified symptoms and signs involving the circulatory and respiratory systems
CPT/HCPCS: 87637

== ENCOUNTER 2025-03-10 12:07 | Outpatient (AMB) | payer OTHER, SELFPAY ==
--- NOTE | 2025-03-10 13:05 | AM.OFFWIN_ITS ---
Intake Vital Signs 03/10/25 13:21 Height 6 ft Weight 262 lb BMI 35.5 BP 158/90 H Blood Pressure Location Lt brachial Position Sitting Pulse 62 Pulse Source Pulse Oximeter Temp 98.1 F Temp Source Oral Pulse Oximetry (%) 97 Oxygen Delivery Method Room Air Intake Visit Reasons: EP Sinus infection, chills, cough [phone] Intake Note: presents with sinus congestion, chest congestion, coughing, chills/sweating, body aches for 1 day Patient Tobacco Use Status: Former Tobacco user Allergies No Known Allergies (No Known Allergies*) Allergy (Verified 03/10/25 13:26) Do you need a note to return to daycare/school/sports/work: Yes Return to daycare/school/sports/work/other note: work HPI HPI Comments History of Present Illness Details 44 y/o Male patient who presents to the walk in clinic today for c/o URI symptoms x 1 day. Reports Sinus/chest congestion, cough, body chills and body aches. He has not taken any medications for symptoms. [facility] Medical History (Updated 03/10/25 @ 13:47 by Millie Arreaga NP) Acute respiratory disease Pancreatitis Social History Household Members: Significant Other Housing: House Do you presently have visiting nurse or other home services: No Alcohol intake: current Alcohol intake frequency: other Alcohol type: beer Patient Tobacco Use Status: Former Tobacco user Tobacco use type: Cigarette Cigarette Packs Per Day: 0.5 Cigarettes Per Day: 10.0 Substance Use Type: Marijuana service: No Current occupational status: employed Review of Systems Const All systems reviewed & are unremarkable except as noted in HPI and below Physical Exam Vital Signs: Last Vital Signs Temp 98.1 F 03/10/25 13:21 Pulse 62 03/10/25 13:21 BP 158/90 H 03/10/25 13:21 Pulse Ox 97 03/10/25 13:21 Oxygen Delivery Method Room Air 03/10/25 13:21 BMI result Body Mass Index 35.5 Const General: no acute distress Nutritional Appearance: overweight Orientation/consciousness: patient oriented x3 HEENT Head: Yes normocephalic Ears: external ears normal and TM abnormal with fluid behind the TM bilateral General nose exam: Nasal discharge present Face and sinus: Yes sinuses nontender Mouth: moist mucous membranes Throat: Yes uvula midline Resp Effort & Inspection: normal respiratory effort Auscultation: clear to auscultation bilaterally Cardio Heart sounds: S1 normal heart sound present and S2 normal heart sound present Neuro General: patient oriented x3 Assessment & Plan Assessment & Plan (1) Acute respiratory disease: Code(s): J06.9 - Acute upper respiratory infection, unspecified Plan: Ordered SARs OTC remedies Acetaminophen for pain relief Hydrate with plenty water. Orders: Orders SARS-CoV2/FLU/RSV Today J06.9 - Acute upper respiratory infection, unspecified Medications: New dextromethorphan polistirex ER (Delsym 12 hour) 10 mL PO Q12H 89 mL 0RF cough J06.9 - Acute upper respiratory infection, unspecified pseudoephedrine HCl ER (Sudafed 12 Hour) 120 mg PO Q12H 30 tabs 0RF J06.9 - Acute upper respiratory infection, unspecified benzonatate 200 mg (2 x 100 mg) PO BID 60 caps 0RF cough J06.9 - Acute upper respiratory infection, unspecified Discontinued amlodipine Discontinued Reason: Patient Completed Course 5 mg PO DAILY 90 tabs 0RF lorazepam (Ativan) Discontinued Reason: Patient Completed Course 1 mg PO BEDTIME PRN 14 tabs 0RF anxiety/sleep Coding Level of Care Code Est Pt Level 4 (48423) Diagnoses Acute respiratory disease J06.9 Time Spent (min) 20
--- OUTSIDE RECORDS SUMMARY | 2025-03-10 13:07 | XMS_ITS | Clinical Summary ---
Author Organization [facility] Address [address] [facility] [address] [place] [address] Phone Care Team Providers Care Edi Analyst Name Role Phone Manpreet Elias MD Primary Care Provider + Allergies No known active allergies Medications carvedilol (COREG) 12.5 MG tablet Take 12.5 mg by mouth 1 (one) time each day Active lisinopril 20 MG tablet TAKE 1 TABLET BY MOUTH EVERY DAY 30 tablet 1 08/15/2021 Active lisinopril 10 MG tablet Take 1 tablet by mouth 1 (one) time each day 06/13/2021 Active NIFEdipine CC (ADALAT CC) 30 MG 24 hr tablet Take 1 tablet by mouth 1 (one) time each day 07/21/2021 Active Active Problems Problem Noted Date Diagnosed Date Hypertension 09/05/2021 Social History Tobacco Use Types Packs/Day Years Used Date Smoking Tobacco: Every Day Cigarettes Smokeless Tobacco: Never Alcohol Use Standard Drinks/Week Comments Yes 0 (1 standard drink = 0.6 oz pur e alcohol) daily Sex and Gender Information Value Date Recorded Sex Assigned at Not on file Legal Sex Male 12:23 PM EDT Gender Identity Not on file Sexual Orientation Not on file Last Filed Vital Signs Vital Sign Reading Time Taken Comments Blood Pressure 144/90 07/21/2021 10:22 AM EST Pulse 60 07/21/2021 10:22 AM EST Temperature - - Respiratory Rate - - Oxygen Saturation 96% 07/21/2021 10:22 AM EST Inhaled Oxygen Concentration - - Weight 118 kg (260 lb) 07/21/2021 10:22 AM EST Height - - Body Mass Index - - Plan of Treatment Health Maintenance Due Date Last Done Comments Hepatitis B Vaccine (1 of 3 - 19+ 3-dose series) 04/13 Pneumococcal Vaccine: Peds ( 0 to 5 Years) and At-Risk Patients (6 to 49 Years) (1 of 2 - PCV) 1998 Influenza Vaccine (#1) 2025 Insurance Care Teams Edi Analyst Relationship Specialty Start Date End Date Manpreet Elias MD PCP - General Internal Medicine 06/25/21
--- OUTSIDE RECORDS SUMMARY | 2025-03-10 13:07 | XMS_ITS | Clinical Summary ---
Author Organization [facility] [address] [facility] [address] Address [address] [place] [address] Phone Care Team Providers Care Metal Washing Machine Operator Name Role Phone Physician, No Pcp Primary Care Provider Unavaila ble Allergies Active Allergy Reactions Criticality Noted Date Comments Bee Venom Protein (Honey Bee) Swelling High 2018 Medications hydrOXYzine HCL (ATARAX) 25 mg tablet Take 1 Tablet by mouth 3 times daily as needed for Anxiety for up to 360 days. 03/04/2024 Active amLODIPine (NORVASC) 5 mg tablet Take 1 tablet (5 mg total) by mouth 1 (one) time each day. 01/13/2024 Active propranolol LA (INDERAL LA) 120 mg 24 hr capsule Take 1 capsule (120 mg total) by mouth 1 (one) time each day. Do not crush, chew, or split. 90 capsule 1 08/12/2024 Active Active Problems Problem Noted Date Diagnosed Date Class 2 severe obesity due t o excess calories with serious comorbidity and body mass index (BMI) of 35.0 to 35.9 in adult (CMS/HCC V24, [facility] V28) 06/24/2024 Pure hypercholesterolemia 11/28/2022 Near syncope 07/14/2021 Hypertension 10/27/2020 Pancreatitis 08/31/2019 Overview (06/24/2024): hosp 08/15, 05/18 Knee pain 05/24/2013 Overview (06/24/2024): Records from [facility] 05/10. 04/08-present seen for large osteochondral cyst defect of knee. Conservative treatment. ?restrictions (not noted) Narcotic dependence ([facility]/HCC V24, [facility]/HCC V28) 1 09/01/2009 Overview (06/24/2024): 2006 (Heroin) Methadone program until late 2015 Nephrolithiasis 07/02/2010 Overview (06/24/2024): 2006 Tobacco use disorder 07/02/2010 Immunizations Name Administration Dates Next Due Tdap Tetanus diptheria acell ular pertussis (Boostrix; Adacel) 7yo and older 11/24/2011 Surgical History Surgery Date Site/Laterality Comments KNEE ARTHROSCOPY 11/2011 Right PROCEDURE: UT ARTHROSCOPY AID [place] SPINE&/FX KNEE W/O FIXJ; COMMENT: Arthroscopic drilling of OCD lesion, Dr Felton UPPER GASTROINTESTINAL ENDOSCOPY 12/09/2019 PROCEDURE: UT UPPER GI ENDOSCOPY PERFORMED; COMMENT: Normal, not on H2 or PPI rx. OTHER SURGICAL HISTORY 11/04/2020 Left PROCEDURE: SKIN TISSUE BIOPSY [facility] PATHOLOGY EXAM; COMMENT: excision of a left lower back sebaceous cyst - by Priya Koroma PA-C Medical History Medical History Date Comments Narcotic dependence ([facility]/HCC V24, [facility]/HCC V28) DX:Narcotic dependence (HCC) History of hepatitis C 08/11/2010 DX:Histor y of hepatitis C; COMMENT: Pos ab 08/06, normal lft--viral levels undetectable Essential hypertension DX:Essent ial hypertension Family History Medical History Relation Name Comments Other: Blood clots Father Hypertension Mother Colon cancer Neg Hx Other cancer Neg Hx Relation Name Status Comments Brother Alive Father (Age 61) Maternal Grandfather Maternal Grandmother Mother Alive Paternal Grandfather Paternal Grandmother Sister 1 Alive Sister 2 Alive Sister 3 Alive Son Alive Social History Tobacco Use Types Packs/Day Years Used Date Smoking Tobacco: Every Day Cigarettes Smokeless Tobacco: Never Alcohol Use Standard Drinks/Week Comments Yes 1 (1 standard drink = 0.6 oz pur e alcohol) Sex and Gender Information Value Date Recorded Sex Assigned at Not on file Legal Sex Male 6:34 PM EST Gender Identity Not on file Sexual Orientation Not on file Obstetrics History Last Filed Vital Signs Vital Sign Reading Time Taken Comments Blood Pressure 148/94 02/23/2024 1:37 PM EDT Pulse 54 02/23/2024 1:37 PM EDT Temperature - - Respiratory Rate - - Oxygen Saturation - - Inhaled Oxygen Concentration - - Weight 122 kg (268 lb) 02/23/2024 1:37 PM EDT Height 185.4 cm (6' 1 ) 02/23/2024 1:37 PM EDT Body Mass Index 35.36 02/23/2024 1:37 PM EDT Plan of Treatment Health Maintenance Due Date Last Done Comments Hepatitis B Vaccines (1 of 3 - 19+ 3-dose series) 1998 Pneumococcal Vaccine: Pediat rics (0 to 5 Years) and At-Risk Patients (6 to 49 Years) (1 of 2 - PCV) 1998 DTaP,Tdap,and Td Vaccines (2 - Td or Tdap) 11/23/2021 11/24/2011 Colorectal Cancer Screening: Colonoscopy 07/30/2022 Depression Screening 07/30/2022 Social Influencers of Health Screening 07/30/2022 COVID-19 Vaccine (1 - 2023-2 5 season) 2024 Hypertension/CHF/CAD Annual BMP Blood Test 06/13/2024 06/13/2023 Influenza Vaccine (#1) 2025 Cholesterol Screening (Lipid Panel) 11/26/2027 11/25/2022 Hepatitis C Screening Completed 08/04/2010 HIV Screening Completed 11/15/2019 HIB Vaccines Aged Out No longer eligi ble based on patient's age to complete this topic HPV Vaccines Aged Out No longer eligi ble based on patient's age to complete this topic Hepatitis A Vaccines Aged Out No long er eligible based on patient's age to complete this topic IPV Vaccines Aged Out No longer eligi ble based on patient's age to complete this topic MMR Vaccines Aged Out No longer eligi ble based on patient's age to complete this topic Meningococcal ACWY Vaccine Aged Out N o longer eligible based on patient's age to complete this topic Meningococcal B Vaccine Aged Out No l onger eligible based on patient's age to complete this topic RSV Immunization Patients Un nevaeh 20 months Aged Out No longer eligible b ased on patient's age to complete this topic Varicella Vaccines Aged Out No longer eligible based on patient's age to complete this topic Procedures Procedure Name Priority Date/Time Associated Diagnosis Comments ANNUAL BMP BLOOD TEST Routine 06/13/2023 LIPID PANEL Routine 11/25/2022 HIV SCREENING Routine 11/15/2019 HEPATITIS C SCREENING Routine 08/04/2010 from Last 3 Months or Most Recently Relevant to Health Maintenance Results * Annual BMP Blood Test (06/13/2023) [facility] Annual BMP Blood Test Abstracted [facility] Provider HEALTH MAINTENANCE Final Result * (ABNORMAL) Lipid panel (11/25/2022) [facility] LDL/HDL Ratio 5(A) 0 - 4 Triglycerides 114 0 - 150 mg/dL Cholesterol 237(A) 0 - 200 mg/dL HDL 49 >=40 mg/dL LDL Cholesterol 166(A) 0 - 100 mg/dL Blood Venous blood specimen / Unknown [facility] Provider LAB BLOOD ORDERABLES Helen l Result * HIV Screening (11/15/2019) [facility] HIV Screening Abstracted [facility] Provider HEALTH MAINTENANCE Final Result * Hepatitis C Screening (08/04/2010) [facility] Hepatitis C Screening Abstracted [facility] Provider HEALTH MAINTENANCE Final Result from Last 3 Months or Most Recently Relevant to Health Maintenance Insurance Care Teams Metal Washing Machine Operator Relationship Specialty Start Date End Date Physician, No Pcp PCP - General 10/09/24
--- OUTSIDE RECORDS SUMMARY | 2025-03-10 13:07 | XMS_ITS | Clinical Summary ---
Author Organization [facility] Address [address] [place] [address] Care Team Providers Care Central Services Tech Name Role Phone Manpreet Elias MD Primary Care Provider Social History Tobacco Use Types Packs/Day Years Used Date Smoking Tobacco: Never Assessed Sex and Gender Information Value Date Recorded Sex Assigned at Male 06/03/2022 11:04 AM EDT Gender Identity Not on file Sexual Orientation Not on file Job Start Date Occupation Industry Not on file Not on file Not on file Plan of Treatment Health Maintenance Due Date Last Done Comments Hepatitis B Vaccines (1 of 3 - 3-dose series) 1979 Hepatitis C Screening 1979 COVID-19 Vaccine (#1) 1979 Depression Screening 1991 Preventative Health Evaluation 1997 DTap / Tdap / Td (2 - Td or Tdap) 11/23/2021 012 Colon Cancer Screening (Colonoscopy) 2024 Influenza Vaccine (#1) 2025 Pneumococcal Vaccine Aged Out No long er eligible based on patient's age to complete this topic RSV Ped < 20 months Aged Out No longe r eligible based on patient's age to complete this topic Care Teams Central Services Tech Relationship Specialty Start Date End Date Manpreet Elias MD PCP - General Automobile Rental Clerk 06/01/22
[2025-03-10 13:21] VITALS: BP 158/90; PULSE 62; TEMP 36.7; O2SAT 97; BMI 35.5
== END 2025-03-10 13:52 | disposition home or self-care (01) ==
PROVIDERS: PCP Family Medicine; Visit Provider Nurse Practitioner Family
DX: J06.9 Acute upper respiratory infection, unspecified (principal)